=== PATIENT | female | born 1980 | race Caucasian/White ===

== ENCOUNTER → 2016-12-09 | Outpatient (CLI) | payer BC ==
[~2016-12-09] MED LIST: CALC-478 PO; Juice Plus PO; MISCCAP80; OXYC-57 PO; [UNRECOGNIZED DRUG - OTHER]
[2016-12-09 14:57] VITALS: BP 116/73; PULSE 62; TEMP 36.6; O2SAT 100
--- NOTE | 2016-12-09 16:25 | Radiation Oncology Follow-Up ---
Radiation Oncology Follow-Up Date of Visit Dec 09, 2016. Reason For Visit 1 month follow up visit post-treatment. Radiation Completion Date 11/05/16 Diagnosis (1) Breast cancer Status: Chronic Onset Date: 11/14/2015 Stage: ll Permanent Comment: STAGING: Left breast, invasive ductal carcinoma, grade 3, ER /RI/Her2 negative, BRCA1 positive, [id number], [id number] TREATMENT: 1. Neoadjuvant chemotherapy - ddAC/T - Dr. Johnston 2. Bilateral mastectomy with [place] - [place] [facility] [place] Hendrix/ Dr. Bruner 3. Status post completion of radiation therapy 11/05/2016 received 6240 cGy. Last Edited By: Candy Rhodes on Nov 14, 2016 12:38 Interim History Ms. Tirado is a 36-year-old BRCA1 mutation carrier female who was diagnosed with left breast cancer (invasive ductal carcinoma, grade 3, triple negative, cT2N1, [id number]). The patient was treated with neoadjuvant ddAC/T followed by bilateral mastectomies and sentinel lymph node biopsy and experienced a complete response to chemotherapy. The patient did have immediate reconstruction with bilateral tissue expanders by Dr. Bruner. She was then treated with postmastectomy radiation therapy which completed in October 2016. We are now seeing her for 1 month follow-up evaluation. Overall she is doing relatively well. She has no significant complaints. She no longer has any fatigue. She has some tightness in her chest wall but no concerning areas otherwise. Allergies Coded Allergies: No Known Allergies (Verified , 12/09/16) Home Medications Scheduled Vpiweuw-Skqpvneho-Rluu (Calcium & Magnesium + Zin 334-134-5 mg), 1 TAB PO BID Probiotic Product (Probiotic), QAM [Juice Plus], 2 CAP PO BID Review of Systems Gastrointestinal: Symptoms: WNL Oral: Symptoms: No Problems Respiratory: Symptoms: WNL Urinary: Symptoms: WNL Skin: Symptoms: No Problems Breast: Right Upper Arm Measurement: 29.0 Right Mid Arm Measurement: 22.8 Right Wrist Measurement: 15.2 Left Upper Arm Measurement: 30.7 Left Mid Arm Measurement: 23.9 Left Wrist Measurement: 15.3 Arm Dominence: Right Physical Exam Vital Signs Date Time Temp Pulse Resp B/P Pulse Ox O2 Delivery O2 Flow Rate FiO2 1/24/17 14:57 36.6 62 16 116/73 100 General Appearance: WD/WN, no apparent distress Neck: supple, no adenopathy Respiratory/Chest: chest non-tender, lungs clear, normal breath sounds, no respiratory distress Breast: Left chest wall: s/p mastectomy and tissue cardiac cath technologist in place. Minimal hyperpigmentation noted, otherwise normal. No edema noted. No axillary adenopathy noted. Right chest wall: s/p mastectomy and tissue cardiac cath technologist in place. Cardiovascular: regular rate, rhythm, no edema, no gallop, no JVD Assessment & Plan Ms. Tirado is a BRCA1 mutation carrier 36 year old female who presents with a history of stage II left breast cancer status post neoadjuvant chemotherapy followed by bilateral mastectomies with immediate reconstruction and post- mastectomy radiation therapy which completed in October 2016. She did also note that she does plan to have a prophylactic bilateral salpingo-oophorectomy completed by Dr. Espinoza due to her BRCA1 mutation status. She now presents for her 1 month follow up evaluation. Overall, she is dong well. She has no signficant complaints. There is no clinical evidence of recurrence. We are happy with her progress. I would like to see her back in 6 months for follow up. She will continue to follow up with plastic surgery for reconstruction, breast surgery, medical oncology, gynecology and PCP. We encouraged her to call us with any questions or concerns or if she would like to be seen earlier than 6 months. Total Time In Follow-Up I spent 15 minutes examining and counseling the patient. I spent 15 minutes completing this note. Copy To Alejandro Johnston D.O.; Yanet Hendrix D.O.; Eric Bruner M.D.; Ke Mariee M.D. Problem Qualifiers (1) Breast cancer: Breast location: unspecified site of breast Patient sex: female Laterality: left Qualified Codes: C50.912 - Malignant neoplasm of unspecified site of left female breast
== END | disposition home or self-care (01) ==
LOC: C.ONC 14:54
PROVIDERS: ATTEND Radiology Radiation Oncology
DX: Z08 Encounter for follow-up examination after completed treatment for malignant neoplasm (principal); Z92.3 Personal history of irradiation; Z85.3 Personal history of malignant neoplasm of breast

== ENCOUNTER 2016-12-11 05:39 | Day surgery (SDC) | payer BC, OTHER ==
[2016-12-09 14:08] VITALS: BMI 27.0
[~2016-12-11] VITALS: Ht 162.6 cm; Wt 74.2 kg
[~2016-12-11 05:39] MED LIST changes: -OXYC-57 PO; -[UNRECOGNIZED DRUG - OTHER]
[2016-12-11] MEDS ORDERED: LACTATED RINGER'S 1000ML IV SCH (06:00)
[2016-12-11] MEDS ORDERED: CEFAZOLIN 1000MG/55 ML D5W 55 ML IV SCH (06:00)
[2016-12-11 06:16] VITALS: BP 110/63; PULSE 62; TEMP 36.7; O2SAT 98; Ht 162.6 cm; Wt 74.2 kg
[2016-12-11] MEDS ORDERED: LIDOCAINE HCL 2% 2 ML VIAL (20MG/ML) ONE (07:01)
[2016-12-11] MEDS ORDERED: PROPOFOL IV EMULSION 10 MG/ML 20 ML VIAL IV ONE (07:01)
[2016-12-11] MEDS ORDERED: MIDAZOLAM HCL 1 MG/ML 2ML VIAL ONE (07:01)
--- NOTE | 2016-12-11 07:12 | History & Physical Bridge Note ---
H&P Re-Evaluation Bridge Note: I have examined the patient, reviewed the History & Physical and in the interval since the performance of the History & Physical I have noted the following changes of clinical significance: No changes noted
[2016-12-11] MEDS ORDERED: ATROPINE SULFATE 0.1 MG/ML 5ML SYR IV PRN (07:15)
[2016-12-11] MEDS ORDERED: EpHEDrine SULFATE INJ 50 MG/ML AMP IV PRN (07:15)
[2016-12-11] MEDS ORDERED: FENTANYL CITRATE INJ 50 MCG/1 ML 2 ML VIAL IV PRN (07:15)
[2016-12-11 07:20] LABS: PREG INTERNAL NEGATIVE QC NEG CLEAR BACKGROUND; PREG INTERNAL POSITIVE QC POS CONTROL LINE
[2016-12-11 07:55] VITALS: BP 105/54; PULSE 72; TEMP 36.9; O2SAT 100
[2016-12-11] MEDS ORDERED: SODIUM CHLORIDE 0.9% 1000ML 1,000 ML IV SCH (07:58)
[2016-12-11] MEDS ORDERED: ONDANSETRON INJ 2 MG/ML 2 ML VIAL IV PRN (08:00)
[2016-12-11] MEDS ORDERED: HYDROCODONE/ACETAMOPHEN 5/325MG TAB PO PRN ×2 (08:00)
[2016-12-11] MEDS ORDERED: IBUPROFEN 600 MG TAB PO PRN (08:00)
--- NOTE | 2016-12-11 08:00 | [facility] Operative Report ---
Operative Report Operative Date Dec 11, 2016. Pre-Operative Diagnosis History of Left Breast Cancer Post-Operative Diagnosis history of left breast cancer Procedure(s) Performed removal of left subclavian mediport Surgeon Dr. Long Roman National Coverage Specialist Surgeon(s) None per surgeon Estimated Blood Loss 5ml Findings normal appearing mediport cath Specimens Removed Mediport Complication(s) None Disposition Recovery Room / PACU I attest to the content of the Intraoperative Record and any orders documented therein. Any exceptions are noted below.
--- NOTE | 2016-12-11 08:00 | Anesthesiology Progress Note ---
Anesthesia Post Op Note Date & Time Dec 11, 2016 at 07:59 Vital Signs Pain Intensity: 0 Vital Signs Past 12 Hours Date Time Temp Pulse Resp B/P Pulse Ox O2 Delivery O2 Flow Rate FiO2 12/11/16 06:16 36.7 62 16 110/63 98 Room Air Notes Mental Status: alert / awake / arousable, participated in evaluation Pt Amnestic to Procedure: Yes Nausea / Vomiting: adequately controlled Pain: adequately controlled Airway Patency, RR, SpO2: stable & adequate BP & HR: stable & adequate Hydration State: stable & adequate Anesthetic Complications: no major complications apparent
--- NOTE | 2016-12-11 08:02 | Discharge Instructions ---
Discharge Instructions Admission Reason for Admission: Left Breast Cancer Discharge Discharge Diagnosis / Problem: desire for mediport removal Discharge Goals Goal(s): Improve function Activity Recommendations Activity Limitations: as noted below Lifting Limitations: gradually increase as tolerated Exercise/Sports Limitations: until after follow-up appointment May Resume Sexual Activity: when tolerated Shower/Bathe: tomorrow . Current Hospital Diet Patient's current hospital diet: Discharge Diet Recommended Diet: Regular Diet Procedures Procedures Performed: Removal of Mediport, Right Subclavian Pending Studies Studies pending at discharge: no Medical Emergencies . Who to Call and When: Medical Emergencies: If at any time you feel your situation is an emergency, please call 911 immediately. . Non-Emergent Contact Non-Emergency issues call your: Primary Care Provider, Surgeon Call Non-Emergent contact if: temperature is above 101, wound has increased drainage, wound has increased redness, wound has increased pain . "Provider Documentation" section prepared by Long Roman. VTE Core Measure Inpt VTE Proph given/why not?: SCD's
--- NOTE | 2016-12-11 08:23 | OPERATIVE REPORT ---
DATE OF OPERATION: 12/11/2016 PREOPERATIVE DIAGNOSIS: 1. History of left breast cancer with previously placed MediPort. 2. Desire for removal. POSTOPERATIVE DIAGNOSIS: Same. PROCEDURE: Removal of right subclavian MediPort. SURGEON: Dr. Roman. ESTIMATED BLOOD LOSS: 5 mL. COMPLICATIONS: No immediate. ANESTHESIA: MAC with local. OPERATIVE NOTE: After informed consent was obtained, the patient brought to the operating suite, placed in supine position. IV sedation was administered by anesthesia and titrated to effect. After adequate sedation, the right upper chest wall was sterilely prepped and draped in usual fashion. Marcaine with epinephrine was injected around the port site. We then made an incision directly over the previous scar. Electrocautery was used to open the incision down through the soft tissue. We encountered a capsule around the MediPort which we opened with electrocautery. The port itself was not sutured into place. I was able simply grasp it and during inspiration removed the entire catheter quite easily with no resistance. I held pressure for a minute. There was no bleeding. I thoroughly irrigated the wound and closed in 2 layers using 3-0 Vicryl and 4-0 Vicryl. Antibiotic ointment and a sterile dressing were applied. The patient was awakened and transferred to recovery in stable condition. I attest to the content of the Intraoperative Record and any orders documented therein. Any exceptio ns are noted below.
[2016-12-11 08:25] VITALS: BP 106/68; PULSE 66; TEMP 36.4; O2SAT 100
[2016-12-11] MEDS ORDERED: BUPIVACAINE/EPINEPHRINE 0.5% MPF 1:200,000 30 ML VIAL INJ ONE (08:46)
[2016-12-26] MEDS ORDERED: OXYC-57 PO (08:53)
== END 2016-12-11 08:35 | disposition home or self-care (01) ==
LOC: C.ACU 05:39
PROVIDERS: ATTEND Surgery
DX: Z45.2 Encounter for adjustment and management of vascular access device (principal); C50.912 Malignant neoplasm of unspecified site of left female breast; Z80.3 Family history of malignant neoplasm of breast

== ENCOUNTER 2016-12-26 05:23 | Day surgery (SDC) | payer BC ==
[2016-12-09 14:16] VITALS: BMI 27.0
--- NOTE | 2016-12-09 14:44 | PAT Medication Instructions ---
Service Date Dec 09, 2016. Current Home Medication List Ekbtgfy-Uilhvchyw-Bfhl (Calcium & Magnesium + Zin 334-134-5 mg), 1 TAB PO BID Probiotic Product (Probiotic), QAM [Juice Plus], 2 CAP PO BID Medication Instructions For Your Scheduled Surgery - Hold the following medications the morning of surgery: Probiotic Product (Probiotic), QAM Btlnvrw-Mtwwbjhfq-Eeqf (Calcium & Magnesium + Zin 334-134-5 mg), 1 TAB PO BID [Juice Plus], 2 CAP PO BID - Take the following medications as scheduled the night before surgery: Nqlwvdv-Eurctlqsg-Fdvc (Calcium & Magnesium + Zin 334-134-5 mg), 1 TAB PO BID [Juice Plus], 2 CAP PO BID *Nothing to eat or drink after midnight* If you have any questions please call us at [phone] or [phone] or [phone]
[2016-12-09 15:06] LABS: BASO % 0.4 %; BASO ABS # 0.02 K/uL (0-0.2); COMPLETE YES; EOS % 2.3 %; HEMATOCRIT 33.6 % (37-47); LYMPH ABS # 1.01 K/uL (1.2-3.4); MEAN CELL VOLUME 82.4 fL (80-100); MEAN CORPUSCULAR HEMOGLOBIN 27.7 pg (25-34); MEAN CORPUSCULAR HGB CONC 33.6 g/dl (32-36); MEAN PLATELET VOLUME 9.6 fL (7.4-10.4); MONO % 6.1 %; NEUT % 73.2 %; PLATELET COUNT 242 K/uL (130-400); RED BLOOD COUNT 4.08 M/uL (4.2-5.4); WHITE BLOOD COUNT 5.61 K/uL (4.8-10.8)
--- NOTE | 2016-12-09 15:46 | HISTORY & PHYSICAL EXAMINATION ---
DATE OF ADMISSION: 12/26/2016 ADMITTING DIAGNOSES: 1. BRAC1 positive gene mutation. 2. Positive family history of breast cancer. ADMISSION HISTORY: The patient is a 36-year-old 2, para 2 postmenopausal female who is admitted for prophylactic bilateral salpingo-oophorectomy for BRAC1 positive genetic mutation. The patient's mother was diagnosed with breast cancer many years ago and was BRAC1 positive. The patient was not tested until she herself was diagnosed with breast cancer in 2014. The patient underwent bilateral mastectomies with postoperative radiation therapy and chemotherapy. With the positive BRAC1 mutation, genetics had recommended and oncology had concurred that the patient should have a bilateral salpingo-oophorectomy for ovarian cancer prophylaxis. The patient has been amenorrheic for the last year since completing her chemotherapy. OB HISTORY: x2. 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 MEDICAL: Depression. SURGICAL: Bilateral mastectomy with implants, wisdom teeth repair, anterior cruciate repair, ankle surgery. ALLERGIES: No known drug allergies. SOCIAL HISTORY: No smoking. FAMILY HISTORY: Noncontributory. REVIEW OF SYSTEMS: As per HPI. ADMISSION PHYSICAL EXAMINATION: GENERAL: Shows a pleasant female in no acute distress. VITAL SIGNS: Blood pressure 112/64, height of 5 feet 4 inches and weight of 164 pounds. HEENT: Unremarkable. NECK: Supple. LUNGS: Clear. HEART: With a regular rhythm and rate. ABDOMEN: Soft, nontender. PELVIC: Shows normal external genitalia. The vaginal vault is pink and rugated. Cervical os is multiparous and closed. Bimanual examination shows an anterior mobile uterus. The adnexa show no palpable masses. RECTAL: Confirmatory. EXTREMITIES: Show no deep calf tenderness. NEUROLOGIC: Grossly intact. IMPRESSION: A 36-year-old for prophylactic bilateral salpingo-oophorectomy. PLAN: Risks, benefits and alternatives to the surgery have been discussed. While the benefits will be removal of the tubes and ovaries, the risks are bleeding, infection, inadvertent injury to bowel or bladder, and failure to prevent ovarian cancer. We also discussed the fact that the patient will definitely be menopausal after the procedure. In all likely she is already menopausal after the chemotherapy. All questions answered of the patient, her permit has been signed and she wishes to proceed.
[~2016-12-26] VITALS: Ht 162.6 cm; Wt 74.2 kg
[2016-12-26] VITALS (7 sets, daily range): BP systolic 103–110; BP diastolic 57–70; PULSE 50–65; TEMP 36.4–36.6; O2SAT 93–100; Ht 162.6 cm; Wt 74.2 kg
[2016-12-26] MEDS ORDERED: LACTATED RINGER'S 1000ML 1,000 ML IV SCH ×2 (06:00)
[2016-12-26] MEDS ORDERED: KETAMINE HCL INJ 50 MG/ML 10 ML VIAL ONE (07:08)
[2016-12-26] MEDS ORDERED: FENTANYL CITRATE INJ 50 MCG/1 ML 2 ML VIAL ONE ×2 (07:08→09:10)
[2016-12-26] MEDS ORDERED: MIDAZOLAM HCL 1 MG/ML 2ML VIAL ONE (07:08)
[2016-12-26] MEDS ORDERED: HYDROmorphone INJ 2 MG/ML SYR/VIAL ONE (07:09)
--- NOTE | 2016-12-26 07:09 | History & Physical Bridge Note ---
H&P Re-Evaluation Bridge Note: I have examined the patient, reviewed the History & Physical and in the interval since the performance of the History & Physical I have noted the following changes of clinical significance: Patient started a menses after 1(+) years. Discussed probable return in vasomotor sx's after surgery.
[2016-12-26] MEDS ORDERED: BUPIVACAINE 0.5 % 5 MG/1 ML MPF 30ML VIAL ONE (07:11)
[2016-12-26] MEDS ORDERED: PROPOFOL IV EMULSION 10 MG/ML 20 ML VIAL IV ONE (08:20)
[2016-12-26] MEDS ORDERED: NEOSTIGMINE METHYLSULFATE 5 MG/5 ML SYR ONE (08:20)
[2016-12-26] MEDS ORDERED: ROCURONIUM BROMIDE 10 MG/ML 5 ML VIAL ONE (08:20)
[2016-12-26] MEDS ORDERED: LIDOCAINE HCL 2% 2 ML VIAL (20MG/ML) ONE (08:20)
[2016-12-26] MEDS ORDERED: ONDANSETRON INJ 2 MG/ML 2 ML VIAL ONE (08:20)
[2016-12-26] MEDS ORDERED: DEXAMETHASONE SOD INJ 4 MG/ML VIAL ONE (08:20)
[2016-12-26] MEDS ORDERED: GLYCOPYRROLATE INJ 0.2 MG/ML VIAL ONE (08:20)
[2016-12-26] MEDS ORDERED: KETOROLAC TROMETHAMINE 30 MG/ML VIAL ONE (08:37)
[2016-12-26] MEDS ORDERED: HYDROmorphone INJ 1 MG/ML SYR IV PRN (08:45)
[2016-12-26] MEDS ORDERED: OXYCODONE/ACETAMINOPHEN 5-325 TAB PO PRN ×2 (08:45)
[2016-12-26] MEDS ORDERED: FENTANYL CITRATE INJ 50 MCG/1 ML 2 ML VIAL IV PRN (08:45)
[2016-12-26] MEDS ORDERED: ATROPINE SULFATE 0.1 MG/ML 5ML SYR IV PRN (08:45)
[2016-12-26] MEDS ORDERED: SODIUM CHLORIDE 0.9% 1000ML 1,000 ML IV SCH (08:45)
[2016-12-26] MEDS ORDERED: EpHEDrine SULFATE INJ 50 MG/ML AMP IV PRN (08:45)
[2016-12-26] MEDS ORDERED: IBUPROFEN 600 MG TAB PO PRN (08:45)
[2016-12-26] MEDS ORDERED: ONDANSETRON INJ 2 MG/ML 2 ML VIAL IV PRN ×2 (08:45)
--- NOTE | 2016-12-26 08:52 | Medical Student: [facility] ---
Operative Report Operative Date Dec 26, 2016. Pre-Operative Diagnosis BRCA1 mutation Post-Operative Diagnosis same Procedure(s) Performed laparoscopic bilateral salpingo-oophorectomy Surgeon Dr. Espinoza Estimated Blood Loss 10mls Findings 2 small ovaries and normal appearing fallopian tubes which were removed, normal appearing uterus, normal ligaments, 2 ureters, normal appearing bowel with no adhesions Fluids (cc crystalloids) 1000mls Specimens 2 ovaries and 2 fallopian tubes Drains urinary catheter 300mls Anesthesia general Complication(s) None Disposition Recovery Room / PACU Implants none
--- NOTE | 2016-12-26 08:52 | [facility] Post Operative Brief Note ---
Immediate Operative Summary Operative Date Dec 26, 2016. Pre-Operative Diagnosis 1) BRCA1 positive Post-Operative Diagnosis Same as preop Procedure(s) Performed Bilateral Laparoscopic Salpingo-Oopherectomy Surgeon Dr. Espinoza Irrigation Foreman Surgeon(s) None Estimated Blood Loss 10 ML Findings Grade II uterine prolapse; nml appearing tubes, small atrophic appearing ovaries. Bilateral laparoscopic salpingoopherectomy performed. Fluids (cc crystalloids) 1000 Specimens A. Bilateral Tubes and Ovaries Drains None Anesthesia General Complication(s) None Disposition Recovery Room / PACU
[2016-12-26] MEDS ORDERED: OXYC-57 PO (08:53)
--- NOTE | 2016-12-26 08:55 | Discharge Instructions-SurgCtr ---
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 Post Anesthesia Instructions: If you have had General Anesthesia or IV Sedation: * Do not drive today. * Resume driving when surgeon permits. * Do not make important decisions or sign legal documents today. * Call surgeon for: 1. Temperature elevations greater than 101 degrees F. 2. Uncontrollable pain. 3. Excessive bleeding. 4. Persistent nausea and vomiting. 5. Medication intolerance (nausea, vomiting or rash). * For nausea and vomiting use only clear liquids such as: tea, soda, bouillon until nausea subsides, then gradually increase diet as tolerated. * If you have any concerns or questions, call your surgeon's office. If physician is unavailable and it is an emergency, call 911 or go to the nearest emergency room. . Instructions / Follow-Up Instructions / Follow-Up ACTIVITY RECOMMENDATIONS: * Rest the first 2-3 days. You should be back to your normal activity levels by day 3. * No heavy lifting for 2 weeks. * No intercourse, tampons or douching for 1-2 weeks. * You may shower the next day. * Do not drive anytime that you are taking narcotic pain medicines. RETURN TO SCHOOL/WORK: * May return to school or work after 2-3 days. DIET: Nausea may occur in the immediate post-operative period. If so, take clear liquids such as tea, bouillon, apple juice until all nausea has subsided, then resume usual diet. MEDICATIONS: Resume previous medications unless instructed otherwise by your surgeon. Ibuprofen 200mg 2-3 tablets every 4-6 hours as needed -- OR -- Aleve 2 tablets every 8-12 hours as needed for post-operative discomfort Medications are over the counter. Tylenol may be used if above medications are contraindicated or not preferred. Medication should be taken with food or milk. Do not take on an empty stomach. SPECIAL CARE INSTRUCTIONS: * Check temperature twice daily for one week. report any elevation over 101 degrees. * You may experience some vagina spotting and/or bleeding. This is normal for 1 -2 weeks and should not be heavier than a normal period. If it is unusual in amount, call your physician. * Post-operative discomfort may consist of a sore throat, a "bloated" feeling and pain in the shoulders. these are normal symptoms, which usually only last for 2-3 days. * Remove band-aids tomorrow and shower. There is no need to replace band-aids unless there is drainage or discomfort. FOLLOW UP VISIT: Call your doctor's office for a post-operative 2 week visit if not already scheduled. Diet Recommendations Home Diet: resume previous diet Procedures Procedures Performed: Bilateral Laparoscopic Salpingo-Oopherectomy Pending Studies Studies pending at discharge: yes List of pending studies: Pathology from surgery Medical Emergencies . Who to Call and When: Medical Emergencies: If at any time you feel your situation is an emergency, please call 911 immediately. . Non-Emergent Contact Non-Emergency issues call your: Human Resources Temp Call Non-Emergent contact if: you have a fever, temperature is above 100.5, wound has increased drainage, wound has increased redness . . "Provider Documentation" section prepared by Julien Espinoza. [place] Drug Monitoring Program Search Results: no issues identified Drug Monitoring Findings: Negative
--- NOTE | 2016-12-26 09:28 | OPERATIVE REPORT ---
DATE OF OPERATION: 12/26/2016 PREOPERATIVE DIAGNOSIS: Genetic susceptibility to ovarian cancer, BRAC1 positive mutation. POSTOPERATIVE DIAGNOSIS: Same. PROCEDURE PERFORMED: Bilateral laparoscopic salpingo-oophorectomy. SURGEON: Dr. Julien Espinoza. ANESTHESIA: General. FINDINGS: Laparoscopic examination of the pelvis showed normal appearing uterus with grade 2 uterine descensus. Normal appearing tubes bilaterally. Ovaries appearing postmenopausal. Bilateral laparoscopic salpingo-oophorectomy performed and sent for pathological evaluation. PROCEDURE IN DETAIL: The patient was taken to the operating room and after general anesthesia, was placed in a dorsal lithotomy position and padded and draped for a laparoscopic surgery. Caballero catheter was inserted into the bladder, which remained there throughout the procedure. A single tooth tenaculum was used to grasp the anterior lip of the cervix. Uterine manipulator was inserted into the cavity, insufflated with 3 mL of air and fastened to the tenaculum. Small subumbilical incision was made and the Veress needle was introduced into the pelvic cavity, which was then insufflated with 3 liters of CO2. Veress needle was removed and then a 10-mm incision was made above the umbilicus and a 10-mm laparoscopic port was inserted. Pelvic organs were visualized and then under direct laparoscopic guidance, 8-mm da Krystal laparoscopic ports were placed in the right and left paramedial area. Pelvic organs were visualized with description as above. The 5-mm Harmonic scalpel was placed through the right paramedial port grasping forceps through the left paramedial port. Ureter was identified on the right hand side and then the infundibulopelvic ligament along with the mesosalpinx was cauterized with the Harmonic scalpel coming along the mesosalpinx to the junction of the ovary and tube at the uterus. Right tube and ovary were completely excised and placed in the cul-de-sac. The grasping forceps and the harmonic scalpels were removed and reversed. Harmonic scalpel placed to the left paramedial port with a grasping forceps to the right paramedial port. In a similar fashion, the right fallopian tube was grasped and elevated tenting the infundibulopelvic ligament. Ureter was visualized and using the Harmonic scalpel, the infundibulopelvic ligament and mesosalpinx were cauterized coming across the broad ligament to the junction of the ovary and tube at the uterus with complete resection of the left tube and ovary. The specimen was placed in the cul-de-sac. Pedicles were inspected for hemostasis, which was present. An EndoCatch bag was then placed through the umbilical port and a 5-mm scope was placed to the right paramedial port for visualization. Specimens were placed into the EndoCatch bag and brought out through the umbilical incision. Pneumoperitoneum was reestablished. All pedicles were inspected for hemostasis. Irrigation of the cul-de-sac and pedicles occurred. Again, hemostasis present. The pneumoperitoneum was allowed to escape. All trocars were removed under direct laparoscopic guidance. The fascial defect on the umbilicus was closed with 2 interrupted [id number] 0 Vicryl sutures. The skin incisions were closed with 4-0 Monocryl subcuticular stitches and then infiltrated with 0.5% Marcaine solution. A Caballero catheter, uterine manipulator and tenaculum were removed from the cervix. The patient was taken out of dorsolithotomy to recovery room in satisfactory condition. I attest to the content of the Intraoperative Record and any orders documented therein. Any exceptio ns are noted below.
--- NOTE | 2016-12-26 09:53 | Anesthesiology Progress Note ---
Anesthesia Post Op Note Date & Time Dec 26, 2016 at 09:53 Vital Signs Pain Intensity: 5 Vital Signs Past 12 Hours Date Time Temp Pulse Resp B/P Pulse Ox O2 Delivery O2 Flow Rate FiO2 12/26/16 09:35 48 12 106/60 94 Room Air 12/26/16 09:25 48 12 112/59 100 Diffusion Mask 10 12/26/16 09:15 50 12 119/63 100 Diffusion Mask 10 12/26/16 09:05 51 12 109/63 100 Diffusion Mask 10 12/26/16 08:58 36.9 54 12 113/62 100 Diffusion Mask 10 12/26/16 05:55 36.6 62 16 103/70 93 Room Air Notes Mental Status: alert / awake / arousable, participated in evaluation Pt Amnestic to Procedure: Yes Nausea / Vomiting: adequately controlled Pain: adequately controlled Airway Patency, RR, SpO2: stable & adequate BP & HR: stable & adequate Hydration State: stable & adequate Anesthetic Complications: no major complications apparent
[2016-12-26] MEDS ORDERED: KETOROLAC TROMETHAMINE 30 MG/ML VIAL IV. PRN (14:00)
== END 2016-12-26 14:20 | disposition home or self-care (01) ==
LOC: C.ACU 05:23
PROVIDERS: ATTEND Obstetrics & Gynecology
DX: Z40.02 Encounter for prophylactic removal of ovary(s) (principal); Z40.09 Encounter for prophylactic removal of other organ; Z15.02 Genetic susceptibility to malignant neoplasm of ovary; Z15.01 Genetic susceptibility to malignant neoplasm of breast; Z15.09 Genetic susceptibility to other malignant neoplasm; N83.201 Unspecified ovarian cyst, right side; N83.202 Unspecified ovarian cyst, left side; F32.9 Major depressive disorder, single episode, unspecified; Z90.13 Acquired absence of bilateral breasts and nipples; Z85.3 Personal history of malignant neoplasm of breast; Z80.3 Family history of malignant neoplasm of breast

== ENCOUNTER → 2017-01-06 | Outpatient (CLI) | payer BC ==
[~2017-01-06] MED LIST changes: +OXYC-57 PO
[2017-01-06 17:34] LABS: BASO % 0.5 %; BASO ABS # 0.03 K/uL (0-0.2); COMPLETE YES; EOS % 2.4 %; HEMATOCRIT 37.6 % (37-47); IG% 0.2 %; LYMPH % 16.6 %; MEAN CELL VOLUME 83.7 fL (80-100); MEAN CORPUSCULAR HEMOGLOBIN 28.5 pg (25-34); MEAN PLATELET VOLUME 10.2 fL (7.4-10.4); MONO % 6.9 %; NEUT % 73.4 %; PLATELET COUNT 331 K/uL (130-400); RED BLOOD COUNT 4.49 M/uL (4.2-5.4); WHITE BLOOD COUNT 6.63 K/uL (4.8-10.8)
== END | disposition home or self-care (01) ==
LOC: C.LABPBG 11:48
PROVIDERS: ATTEND Internal Medicine Hematology & Oncology
DX: C50.412 Malignant neoplasm of upper-outer quadrant of left female breast (principal)

== ENCOUNTER → 2017-04-29 | Outpatient (CLI) | payer BC ==
[2017-04-29 13:09] LABS: BASO % 0.7 %; BASO ABS # 0.03 K/uL (0-0.2); COMPLETE YES; EOS % 3.6 %; HEMATOCRIT 40.7 % (37-47); IG% 0.2 %; LYMPH % 31.4 %; LYMPH ABS # 1.32 K/uL (1.2-3.4); MEAN CELL VOLUME 85.5 fL (80-100); MEAN CORPUSCULAR HEMOGLOBIN 27.7 pg (25-34); MEAN CORPUSCULAR HGB CONC 32.4 g/dl (32-36); MEAN PLATELET VOLUME 9.8 fL (7.4-10.4); MONO % 8.6 %; NEUT % 55.5 %; PLATELET COUNT 290 K/uL (130-400); RED BLOOD COUNT 4.76 M/uL (4.2-5.4)
== END | disposition home or self-care (01) ==
LOC: C.LABPBG 07:55
PROVIDERS: ATTEND Internal Medicine Hematology & Oncology
DX: C50.412 Malignant neoplasm of upper-outer quadrant of left female breast (principal)

== ENCOUNTER → 2017-06-09 | Outpatient (CLI) | payer BC ==
[2017-06-09 13:30] VITALS: BP 133/80; PULSE 59; TEMP 36.7; O2SAT 99
--- NOTE | 2017-06-09 16:37 | Radiation Oncology Follow-Up ---
Radiation Oncology Follow-Up Date of Visit Jun 09, 2017. (Candy Rhodes PA-C) Reason For Visit One-month follow-up (Candy Rhodes PA-C) Radiation Completion Date 11/05/16 (Candy Rhodes PA-C) Diagnosis (1) Breast cancer Status: Resolved Onset Date: 11/14/2015 Histology Subtype: ductal Stage: ll Permanent Comment: STAGING: Left breast, invasive ductal carcinoma, grade 3, ER /AK/Her2 negative, BRCA1 positive, [id number], [id number] TREATMENT: 1. Neoadjuvant chemotherapy - ddAC/T - Dr. Johnston 2. Bilateral mastectomy with reconstruction - 07/04/2016 - [facility] [place] - Dr. Hendrix/ Dr. Bruner 3. Status post completion of radiation therapy 11/05/2016 received 6240 cGy. Last Edited By: Candy Rhodes on Nov 14, 2016 12:38 (Candy Rhodes PA-C) History of Present Illness Ms. Tirado is a 36-year-old BRCA1 mutation carrier who is been routinely followed with screening mammograms due to her family history of breast cancer. She initially self palpated a left breast mass. She did have a targeted bilateral mammogram and ultrasound completed on 11/06/2015 which revealed: "an ill-defined obscured dense mass with irregular margins measuring approximately 16 x 18 mm in the upper outer posterior left breast. No associated microcalcifications. Further evaluation with ultrasound was performed. A circumscribed 11 x 9 mm mass superior, lateral and posterior to the ill-defined mass in the area of palpable concern may represent an abnormal lymph node, which has increased compared to prior available mammograms. Another possibly abnormal lymph node projects over the superior left pectoralis muscle on the MLO view. There are no suspicious clustered microcalcifications identified within the left breast. Real-time high-resolution sonographic evaluation was performed in the area of concern pointed out by the patient (in the left 1:00 breast, 3 cm from the nipple). There is a hypoechoic solid mass with angular borders and increased vascularity, measuring approximately 18.0 x 9.0 x 14.4 mm. A small satellite mass with irregular borders is seen superficial to the first measuring 5.5 x 5.3 mm. In the 1:00 breast, 5 cm from the nipple, there is a circumscribed hypoechoic solid mass with increased internal vascularity, likely representing an abnormal lymph node, measuring 8.8 x 8.1 x 9.5 mm." Subsequently, she underwent targeted ultrasound guided biopsies of the left breast mass and left axillary lymph node on 11/14/2015 which confirmed invasive ductal carcinoma that was grade 3 and was ER/AK/Her2 negative. The left axillary lymph node was also biopsied and was positive for invasive ductal carcinoma. The right breast mass was biopsied and came back consistent with fibrocystic changes. Patient was subsequently evaluated by breast surgery (Dr. Hendrix) and medical oncology (Dr. Davis) at [facility] and the consensus recommendation was for neoadjuvant chemotherapy followed by mastectomy with immediate reconstruction. The patient additionally underwent a bilateral MRI of the breasts on 11/23/2015 which revealed a dominant 2.8 cm mass in the left breast as well as metastatic axillary adenopathy. She did have CT staging scans completed on 12/04/2015 which only revealed her primary breast cancer but no other evidence of distant metastatic disease. She had a bone scan on 12/05/2015 which was also negative for metastatic disease. The patient subsequently underwent dose dense adriamycin, cyclophosphamide and paclitaxel chemotherapy underneath the supervision of Dr. Alejandro Johnston and she completed her chemotherapy in May 2016. She subsequently underwent a bilateral mastectomy with a left sentinel lymph node biopsy and immediate reconstruction on 07/04/[address] Hendrix and Dr[address] Bruner. Pathology revealed no evidence of disease in the right breast. The left breast mastectomy only showed changes consistent with the previous biopsy site but no evidence of residual carcinoma. Both sentinel lymph nodes were also negative. In summation, there was no evidence of residual disease following the completion of her chemotherapy. Since then, the patient has been receiving saline instillations by Dr. Bruner for her bilateral tissue expanders and is close to being dominant with the process. We are now seeing the patient in consultation to discuss the role of postmastectomy radiation therapy. Currently, the patient is doing relatively well overall. She states she is healed up well from surgery and chemotherapy. She has no other complaints at this time. She returned to our office and underwent conventional radiation therapy. Radiation was completed 11/05/2016 she received 6240 c (Candy Rhodes PA-C) Interim History She has been doing well over the past 6 months. She was seen by the plastic surgeon. She underwent removal of the tissue expanders and placement of the permanent implants 05/20/2017. She is steadily recovered from the surgery. She is only minimal soreness. Does not have to take any pain medication on a regular basis. She did postoperatively well. He had no issues with skin healing or irritation. She did have a small mole of the left axilla recently excised. (Candy Rhodes PA-C) Allergies Coded Allergies: No Known Allergies (Verified , 12/26/16) Home Medications Scheduled Vinxcwn-Oroqelaec-Tmoq (Calcium & Magnesium + Zin 334-134-5 mg), 1 TAB PO BID Probiotic Product (Probiotic), QAM [Juice Plus], 2 CAP PO BID Review of Systems Gastrointestinal: Symptoms: WNL Oral: Symptoms: No Problems Respiratory: Symptoms: WNL Urinary: Symptoms: WNL Skin: Symptoms: No Problems Breast: Right Upper Arm Measurement: 30.0 Right Mid Arm Measurement: 24.0 Right Wrist Measurement: 15.5 Left Upper Arm Measurement: 30.0 Left Mid Arm Measurement: 23.5 Left Wrist Measurement: 15.5 Arm Dominence: Right (Candy Rhodes PA-C) Physical Exam Vital Signs Date Time Temp Pulse Resp B/P (MAP) Pulse Ox O2 Delivery O2 Flow Rate FiO2 06/09/17 13:30 36.7 59 16 133/80 99 Pain: Patient Pain Scale: 0 - 10 Initial Pain Intensity: 0.0 Fatigue: None General Appearance: no apparent distress Eyes: normal inspection, EOMI ENT: normal ENT inspection, hearing grossly normal Neck: no adenopathy, thyroid normal Respiratory/Chest: lungs clear, no respiratory distress, no accessory muscle use Breast: Breast examination reveals bilateral implants. There are no masses or tenderness no axillary adenopathy incisions are well-healed. There are no skin retractions. There is no hyperpigmentation or skin irritation. There are no areas of desquamation. Cardiovascular: regular rate, rhythm, no gallop, no murmur Abdomen: normal bowel sounds, non tender Extremities: no pedal edema Neurologic/Psychiatric: no motor/sensory deficits, alert, normal mood/affect Skin: warm/dry (Candy Rhodes PA-C) Laboratory Studies Test 04/29/17 07:58 04/29/17 08:00 White Blood Count 4.20 K/uL (4.8-10.8) Red Blood Count 4.76 M/uL (4.2-5.4) Hemoglobin 13.2 g/dL (12.0-16.0) Hematocrit 40.7 % (37-47) Mean Corpuscular Volume 85.5 fL (80-100) Mean Corpuscular Hemoglobin 27.7 pg (25-34) Mean Corpuscular Hemoglobin Concent 32.4 g/dl (32-36) Platelet Count 290 K/uL (130-400) Mean Platelet Volume 9.8 fL (7.4-10.4) Neutrophils (%) (Auto) 55.5 % Lymphocytes (%) (Auto) 31.4 % Monocytes (%) (Auto) 8.6 % Eosinophils (%) (Auto) 3.6 % Basophils (%) (Auto) 0.7 % Neutrophils # (Auto) 2.33 K/uL (1.4-6.5) Lymphocytes # (Auto) 1.32 K/uL (1.2-3.4) Monocytes # (Auto) 0.36 K/uL (0.11-0.59) Eosinophils # (Auto) 0.15 K/uL (0-0.5) Basophils # (Auto) 0.03 K/uL (0-0.2) RDW Standard Deviation 43.8 fL (36.4-46.3) RDW Coefficient of Variation 14.0 % (11.5-14.5) Immature Granulocyte % (Auto) 0.2 % Immature Granulocyte # (Auto) 0.01 K/uL (0.00-0.02) CA 15-3 Antigen 14 U/mL (<32) CA 27.29 21 U/ML (<38) Fasting Glucose 81 mg/dl (70-99) (Candy Rhodes PA-C) Assessment & Plan Plan: Continue regular follow-up with Dr. Johnston, her breast surgeon and plastic surgeon. She was also seen today by Dr. Braga. We asked him to return to our office in 1 year. She may call if she has D questions or concerns in the interim. We did discuss base and him family history. Her uncle recently underwent double bypass surgery. Her father is also had coronary artery surgery. We discussed that she may need to be evaluated at an earlier age with a treadmill evaluation. She also should have her cholesterol checked. (Candy Rhodes PA-C) I agree with note created by Candy Rhodes PA-C. I reviewed the patient's chart and information with her. I have examined and evaluated the patient. I reviewed relevant clinical information and answered the patient's and/or family' s questions. (Veeral. Braga MD) Total Time In Follow-Up I spent 20 minutes speaking to the patient and performing his examination. I spent 15 minutes reviewing information and completing this note. (Candy Rhodes PA-C) I spent 15 minutes examining and counseling the patient. (Veeral. Braga MD) Copy To Alejandro Johnston D.O.; Yanet Hendrix D.O.; Eric Bruner M.D.; Ke Mariee M.D. Problem Qualifiers (1) Breast cancer: Breast location: upper outer quadrant of breast Estrogen receptor status: negative Patient sex: female Laterality: left Qualified Codes: C50.412 - Malignant neoplasm of upper-outer quadrant of left female breast; Z17.1 - Estrogen receptor negative status [ER-]
== END | disposition home or self-care (01) ==
LOC: C.ONC 13:12
PROVIDERS: ATTEND Physician Assistant Medical
DX: Z08 Encounter for follow-up examination after completed treatment for malignant neoplasm (principal); Z92.3 Personal history of irradiation; Z85.3 Personal history of malignant neoplasm of breast

== ENCOUNTER → 2017-10-13 | Outpatient (CLI) | payer BC ==
[~2017-10-13] MED LIST changes: -OXYC-57 PO
[2017-10-13 17:49] LABS: BASO % 0.7 %; BASO ABS # 0.04 K/uL (0-0.2); COMPLETE YES; EOS % 1.5 %; IG% 0.2 %; LYMPH % 32.2 %; LYMPH ABS # 1.96 K/uL (1.2-3.4); MEAN CORPUSCULAR HEMOGLOBIN 29.2 pg (25-34); MEAN CORPUSCULAR HGB CONC 33.2 g/dl (32-36); MEAN PLATELET VOLUME 10.2 fL (7.4-10.4); MONO % 5.3 %; NEUT % 60.1 %; PLATELET COUNT 276 K/uL (130-400); RED BLOOD COUNT 4.66 M/uL (4.2-5.4); WHITE BLOOD COUNT 6.09 K/uL (4.8-10.8)
[2017-10-13 17:59] LABS: ALT/SGPT 28 U/L (12-78); AST/SGOT 15 U/L (15-37); BLOOD UREA NITROGEN 13 mg/dl (7-18); BUN/CREATININE RATIO 16.7 (10-20); CALCIUM 9.1 mg/dl (8.5-10.1); CARBON DIOXIDE 28 mmol/L (21-32); CHLORIDE 103 mmol/L (98-107); CREATININE 0.76 mg/dl (0.60-1.20); GLUCOSE 108 mg/dl (70-99); POTASSIUM 3.2 mmol/L (3.5-5.1); SODIUM 137 mmol/L (136-145)
[2017-10-13 18:01] LABS: ALB/GLOB RATIO 1.2 (0.9-2); ALKALINE PHOSPHATASE 79 U/L (45-117)
== END | disposition home or self-care (01) ==
LOC: C.LABPBG 12:58
PROVIDERS: ATTEND Internal Medicine Hematology & Oncology
DX: C50.412 Malignant neoplasm of upper-outer quadrant of left female breast (principal)

== ENCOUNTER → 2017-10-16 | Outpatient (CLI) | payer BC ==
[2017-10-16 17:38] LABS: URINE APPEARANCE CLEAR (CLEAR); URINE BILIRUBIN NEG (NEG); URINE COLOR YELLOW; URINE NITRITE NEG (NEG); URINE SPECIFIC GRAVITY 1.009 (1.000-1.030); UROBILINOGEN NEG (NEG)
[2017-10-16 17:42] LABS: MANUAL MICROSCOPIC REQUIRED? NO; REVIEW REQ? NO
== END | disposition home or self-care (01) ==
LOC: C.LABSPEC 13:13
PROVIDERS: ATTEND Family Medicine
DX: R10.2 Pelvic and perineal pain (principal)

== ENCOUNTER → 2017-10-21 | Outpatient (CLI) | payer BC ==
[~2017-10-21] MED LIST changes: +OPTIRAY 320 IV PRN
--- NOTE | 2017-10-21 16:42 | DIAGNOSTIC IMAGING REPORT ---
ABD/PELVIS IV CONTRAST ONLY CT DOSE: 558.66 mGycm HISTORY: Right abdominal pain R10.31 RIGHT LOWER AB PAIN TECHNIQUE: Multiaxial CT images of the abdomen and pelvis were performed following the use of intravenous contrast. A dose lowering technique was utilized adhering to the principles of ALARA. COMPARISON STUDY: 06/16/2016 FINDINGS: Lung bases are clear. Liver spleen and pancreas are uniform. Kidneys negative for hydronephrosis or calcification. Bowel pattern is nonobstructive. Visualized components of the appendix are unremarkable. Uterus is anteflexed. Bladder is midline. Prior bilateral ovarian surgical resection. IMPRESSION: No acute process of the abdomen or pelvis. The above report was generated using voice recognition software. It may contain grammatical, syntax or spelling errors. Electronically signed by: Marco Yun M.D. 10/21/2017 4:41 PM Dictated Date/Time: 10/21/2017 4:37 PM
== END | disposition home or self-care (01) ==
LOC: C.CTS 16:11
PROVIDERS: ATTEND Family Medicine
DX: R10.31 Right lower quadrant pain (principal)

== ENCOUNTER → 2017-12-21 | Outpatient (CLI) | payer BC ==
[~2017-12-21] MED LIST changes: -OPTIRAY 320 IV PRN
== END | disposition home or self-care (01) ==
LOC: C.PAPS 09:35
PROVIDERS: ATTEND Obstetrics & Gynecology
DX: Z01.419 Encounter for gynecological examination (general) (routine) without abnormal findings (principal); Z11.51 Encounter for screening for human papillomavirus (HPV)

== ENCOUNTER → 2018-06-09 | Outpatient (CLI) | payer BC ==
[2018-06-09 13:02] VITALS: BP 114/74; PULSE 61; TEMP 36.6; O2SAT 100
--- NOTE | 2018-06-09 13:40 | Radiation Oncology Follow-Up ---
Radiation Oncology Follow-Up Date of Visit Jun 09, 2018. Reason For Visit Annual follow-up Radiation Completion Date 11/05/16 Diagnosis (1) Breast cancer Status: Resolved Onset Date: 11/14/2015 Histology Subtype: Ductal Stage: ll Permanent Comment: STAGING: Left breast, invasive ductal carcinoma, grade 3, ER /[place]/Her2 negative, BRCA1 positive, [id number], [id number] TREATMENT: 1. Neoadjuvant chemotherapy - ddAC/T - Dr. Johnston 2. Bilateral mastectomy with reconstruction - 07/04/2016 - [facility] [place] - Dr. Hendrix/ Dr. Bruner 3. Status post completion of radiation therapy 11/05/2016 received 6240 cGy. Last Edited By: Candy Rhodes on Nov 14, 2016 12:38 History of Present Illness Ms. Tirado has a BRCA1 mutation carrier who is been routinely followed with screening mammograms due to her family history of breast cancer. She initially self palpated a left breast mass. She did have a targeted bilateral mammogram and ultrasound completed on 11/06/2015 which revealed: "an ill-defined obscured dense mass with irregular margins measuring approximately 16 x 18 mm in the upper outer posterior left breast. No associated microcalcifications. Further evaluation with ultrasound was performed. A circumscribed 11 x 9 mm mass superior, lateral and posterior to the ill-defined mass in the area of palpable concern may represent an abnormal lymph node, which has increased compared to prior available mammograms. Another possibly abnormal lymph node projects over the superior left pectoralis muscle on the MLO view. There are no suspicious clustered microcalcifications identified within the left breast. Real-time high- resolution sonographic evaluation was performed in the area of concern pointed out by the patient (in the left 1:00 breast, 3 cm from the nipple). There is a hypoechoic solid mass with angular borders and increased vascularity, measuring approximately 18.0 x 9.0 x 14.4 mm. A small satellite mass with irregular borders is seen superficial to the first measuring 5.5 x 5.3 mm. In the 1:00 breast, 5 cm from the nipple, there is a circumscribed hypoechoic solid mass with increased internal vascularity, likely representing an abnormal lymph node , measuring 8.8 x 8.1 x 9.5 mm." Subsequently, she underwent targeted ultrasound guided biopsies of the left breast mass and left axillary lymph node on 11/14/2015 which confirmed invasive ductal carcinoma that was grade 3 and was ER/[place]/Her2 negative. The left axillary lymph node was also biopsied and was positive for invasive ductal carcinoma. The right breast mass was biopsied and came back consistent with fibrocystic changes. Patient was subsequently evaluated by breast surgery (Dr. Hendrix) and medical oncology (Dr. Davis) at [facility] and the consensus recommendation was for neoadjuvant chemotherapy followed by mastectomy with immediate reconstruction. The patient additionally underwent a bilateral MRI of the breasts on 11/23/2015 which revealed a dominant 2.8 cm mass in the left breast as well as metastatic axillary adenopathy. She did have CT staging scans completed on 12/04/2015 which only revealed her primary breast cancer but no other evidence of distant metastatic disease. She had a bone scan on 12/05/2015 which was also negative for metastatic disease. The patient subsequently underwent dose dense adriamycin, cyclophosphamide and paclitaxel chemotherapy underneath the supervision of Dr. Alejandro Johnston and she completed her chemotherapy in May 2016. She subsequently underwent a bilateral mastectomy with a left sentinel lymph node biopsy and immediate reconstruction on 07/04/[address] Hendrix and Dr[address] Bruner. Pathology revealed no evidence of disease in the right breast. The left breast mastectomy only showed changes consistent with the previous biopsy site but no evidence of residual carcinoma. Both sentinel lymph nodes were also negative. In summation, there was no evidence of residual disease following the completion of her chemotherapy. Since then, the patient has been receiving saline instillations by Dr. Bruner for her bilateral tissue expanders and is close to being dominant with the process. We are now seeing the patient in consultation to discuss the role of postmastectomy radiation therapy. Currently, the patient is doing relatively well overall. She states she is healed up well from surgery and chemotherapy. She has no other complaints at this time. She returned to our office and underwent conventional radiation therapy. Radiation was completed 11/05/2016 she received 6240 c (Candy Rhodes PA-C) Interim History She has been doing well over this past year. She is noted no changes to the reconstructed breasts. There have been no neck masses or tenderness and no axillary adenopathy. She has had no swelling of her arm. She continued regular follow-up with medical oncology and her primary care physician. She did have a skin lesion removed that was found to be a melanoma. This was removed approximately 1 year ago. She continues follow-up with dermatology. She had seen medical oncology in October of last year and was having abdominal discomfort. There was concern for possible appendicitis. Laboratory studies and CT scan were negative. This resolved and has not reoccurred. Allergies Coded Allergies: No Known Allergies (Verified , 12/26/16) Home Medications Scheduled Nenqdwt-Uqvrwdanf-Caob (Calcium & Magnesium + Zin 334-134-5 mg), 1 TAB PO BID Probiotic Product (Probiotic), QAM [Juice Plus], 2 CAP PO BID Review of Systems Gastrointestinal: Symptoms: Nausea Oral: Symptoms: No Problems Respiratory: Symptoms: WNL Urinary: Symptoms: WNL Skin: Symptoms: No Problems Other Skin Symptoms: had a melanoma removed about a year ago by Dr Baig Breast: Right Upper Arm Measurement: 30.5 Right Mid Arm Measurement: 24.0 Right Wrist Measurement: 15.5 Left Upper Arm Measurement: 30.5 Left Mid Arm Measurement: 24.0 Left Wrist Measurement: 16.0 Arm Dominence: Right Physical Exam Vital Signs Date Time Temp Pulse Resp B/P (MAP) Pulse Ox O2 Delivery O2 Flow Rate FiO2 06/09/18 13:02 36.6 61 20 114/74 100 Fatigue: None General Appearance: no apparent distress Eyes: normal inspection, EOMI ENT: normal ENT inspection, hearing grossly normal Neck: no adenopathy, thyroid normal Respiratory/Chest: lungs clear, no respiratory distress, no accessory muscle use Breast: Breast examination reveals bilateral reconstructed breasts. There is some tightness in the pectoralis minor area. There are no masses or tenderness and no axillary adenopathy. There is no telangiectasia or skin edema. Using the [place] score of cosmesis she has a fair outcome. There is asymmetry in that the left breast is smaller than the right. Cardiovascular: regular rate, rhythm, no gallop, no murmur Neurologic/Psychiatric: no motor/sensory deficits, alert, normal mood/affect Skin: warm/dry Pain Management Patient Reports Pain: No Pain Location: None Patient Preferred Pain Scale: 0 - 10 Initial Pain Intensity: 0.0 Pain Management Plan She denies pain therefore requires no pain management. Laboratory Laboratory Results: not applicable Pathology Pathology Results: were reviewed, and pertinent findings noted in HPI Imaging Imaging Studies: were reviewed Imaging Comments See the interim history. Assessment & Plan Plan: Continue regular follow-up with her primary care provider and medical oncologist. We discussed the tightness of the left shoulder. I asked her to resume stretching exercises to help with range of motion. She continues follow- up with dermatology. She was seen and examined by Dr. Braga. We asked her to return to our office in 1 year. She may call if she has any questions or concerns in the interim. Assessment & Plan (Attending) I agree with note created by Candy Rhodes PA-C. I reviewed the patient's chart and information with her. I have examined and evaluated the patient. I reviewed relevant clinical information and answered the patient's and/or family' s questions. CLERK MANAGER Total Time In Follow-Up I spent 20 minutes speaking to the patient in performing examination. I spent 15 minutes reviewing information and completing this note. AK Total Time (Attending) In Follow-Up I spent 15 minutes examining and counseling the patient. CLERK MANAGER Copy To Alejandro Johnston D.O.; Yanet Hendrix D.O.; Leonor Davison, Problem Qualifiers (1) Breast cancer: Breast location: upper outer quadrant of breast Estrogen receptor status: negative Patient sex: female Laterality: left Qualified Codes: C50.412 - Malignant neoplasm of upper-outer quadrant of left female breast; Z17.1 - Estrogen receptor negative status [ER-]
== END | disposition home or self-care (01) ==
LOC: C.ONC 12:34
PROVIDERS: ATTEND Physician Assistant Medical
DX: Z08 Encounter for follow-up examination after completed treatment for malignant neoplasm (principal); Z92.3 Personal history of irradiation; Z85.3 Personal history of malignant neoplasm of breast